=== PATIENT | male | born 1980 | race Two or more races ===

== ENCOUNTER 2020-06-20 08:41 | Emergency (ER) | payer OTHER ==
[~2020-06-20] VITALS: Ht 175.3 cm; Wt 100.3 kg
[2020-06-20] MEDS ORDERED: MORPHINE 4 MG/ML 1ML VIAL/SYRINGE (J2270) IV ONE (09:00)
[2020-06-20] MEDS ORDERED: ONDANSETRON 4MG/2ML VIAL IV ONE (09:00)
[2020-06-20 09:21] LABS: BASO % 0.9 % (0.0-1.0); EOS # 0.1 10^3/uL (0.0-0.5); EOS % 2.6 % (0.0-3.0); HEMATOCRIT 43.1 % (42.0-52.0); HEMOGLOBIN 14.3 g/dl (13.5-17.5); LYMPH # 1.1 10^3/uL (1.5-5.0); LYMPH % 23.9 % (24.0-44.0); MEAN CORPUSCULAR HEMOGLOBIN 28.7 pg (27.0-33.0); MEAN CORPUSCULAR HGB CONC 33.2 g/dl (32.0-36.5); MEAN CORPUSCULAR VOLUME 86.4 fl (80.0-96.0); MONO # 0.4 10^3/uL (0.0-0.8); MONO % 7.7 % (0.0-5.0); NEUTROPHILS % 64.7 % (36.0-66.0); PLATELET COUNT, AUTOMATED 270 10^3/uL (150-450); RED BLOOD COUNT 4.99 10^6/uL (4.30-6.10); WHITE BLOOD COUNT 4.6 10^3/uL (4.0-10.0)
[2020-06-20 09:41] LABS: BLOOD UREA NITROGEN 15 MG/DL (7-18); CALCIUM LEVEL 9.1 MG/DL (8.5-10.1); CARBON DIOXIDE LEVEL 27 MEQ/L (21-32); CHLORIDE LEVEL 108 MEQ/L (98-107); CREATININE FOR GFR 0.94 MG/DL (0.70-1.30); GLOMERULAR FILTRATION RATE > 60.0 (>60); GLUCOSE, FASTING 104 MG/DL (70-100); POTASSIUM SERUM 4.3 MEQ/L (3.5-5.1); SODIUM LEVEL 140 MEQ/L (136-145)
--- NOTE | 2020-06-20 09:50 | REP ---
Lumbar spine series: Six views. History: Sudden lower lumbar spine pain. Injury during exercise. Findings: Lumbar vertebral body heights are preserved. Alignment is normal. Disc spaces are maintained. Pedicles and posterior elements are intact. There is no evidence of spondylolysis or spondylolisthesis. No fracture or collapse is seen. Psoas margins are symmetric. Sacrum and SI joints are intact. Visualized bowel gas pattern is unremarkable. Impression: Negative radiographs of the lumbar spine. Electronically Signed by Demarco Thapa MD 06/20/2020 09:42 A
--- NOTE | 2020-06-20 13:09 | REPVR ---
PROCEDURE INFORMATION: Exam: MR Lumbar Spine Without Contrast. Exam date and time: 06/20/2020 1:00 PM Age: 40 years old Clinical indication: Pain and injury or trauma; Initial encounter; Sprain or strain, lumbar ligaments; Low back pain; Injury date: 06/20/20; Injury details: Pain in low back after weight lifting injury; Additional info: Heavy life, sudden lbp w rad to groin TECHNIQUE: Imaging protocol: Multiplanar magnetic resonance images of the lumbar spine without intravenous contrast. COMPARISON: [facility] Spine. Lumbosacral, complete 06/20/2020 9:15 AM FINDINGS: Vertebrae: There is 3 mm of grade 1 retrolisthesis of L5 with respect to S1. Normal vertebral body alignment is otherwise preserved. Spinal cord: Conus medullaris terminates at T12/L1. L1-L2: No significant disc disease. No significant spinal canal stenosis. No neural foraminal stenosis. L2-L3: No significant disc disease. No significant spinal canal stenosis. No neural foraminal stenosis. L3-L4: There is shallow disc bulging. There is mild facet hypertrophy. There is mild bilateral neural foraminal narrowing. L4-L5: There is diffuse disc bulging with shallow left paracentral protrusion and annular tear. There is mild facet hypertrophy. The neural foramina are patent. L5-S1: There is diffuse disc bulging/uncovering related to listhesis asymmetric to the left. This narrows the left lateral recess and minimally posteriorly displaces the left S1 nerve root. There is mild facet hypertrophy. There is mild left neural foraminal narrowing. Soft tissues: Unremarkable. IMPRESSION: Degenerative disc disease and spondylosis. At L5/S1, diffuse disc bulge asymmetric to the left narrows the left lateral recess and comes into close contact with the left S1 nerve root. Electronically signed by: Sun Pichardo On 06/20/2020 13:08:27 PM
[2020-06-20] MEDS ORDERED: NORC1TAB7 PO (14:00)
[2020-06-20] MEDS ORDERED: PERCOCET 5MG/325MG TAB PO ONE (14:00)
[2020-06-20] MEDS ORDERED: IBUPROFEN 600MG TAB PO ONE (14:00)
[2020-06-20 14:51] VITALS: BP 131/75
--- NOTE | 2020-06-20 19:20 | ED PDOC ---
Post-Departure Follow-Up [facility] faxed mri ls spine for fu Orin Keith MD Jun 20, 2020 19:20
== END 2020-06-20 14:52 | disposition home or self-care (01) ==
LOC: M ED 08:41
DX: M51.27 Other intervertebral disc displacement, lumbosacral region (principal)
CPT/HCPCS: 72110; 72148; 80048; 85025; 96374; 96375; 99284; J2270; J2405

== ENCOUNTER 2023-09-08 11:44 | Emergency (ER) | payer OTHER ==
[~2023-09-08] VITALS: Ht 175.3 cm; Wt 106.8 kg
[~2023-09-08 11:44] MED LIST: NORC1TAB7 PO
[2023-09-08 12:42] LABS: BASO % 0.6 % (0.0-1.0); EOS # 0.1 10^3/uL (0.0-0.5); EOS % 1.2 % (0.0-3.0); HEMATOCRIT 46.9 % (42.0-52.0); HEMOGLOBIN 15.5 g/dl (13.5-17.5); LYMPH # 1.4 10^3/uL (1.5-5.0); LYMPH % 21.5 % (24.0-44.0); MEAN CORPUSCULAR HEMOGLOBIN 28.6 pg (27.0-33.0); MEAN CORPUSCULAR VOLUME 86.5 fl (80.0-96.0); MONO # 0.5 10^3/uL (0.0-0.8); MONO % 6.9 % (2.0-8.0); NEUTROPHILS # 4.5 10^3/uL (1.5-8.5); NEUTROPHILS % 69.6 % (36.0-66.0); PLATELET COUNT, AUTOMATED 289 10^3/uL (150-450); RED BLOOD COUNT 5.42 10^6/uL (4.30-6.10); WHITE BLOOD COUNT 6.5 10^3/uL (4.0-10.0)
[2023-09-08 12:48] LABS: INR 1.04; PROTHROMBIN TIME 13.3 SECONDS (12.5-14.5)
[2023-09-08 12:49] LABS: PARTIAL THROMBOPLASTIN TIME 29.5 SECONDS (24.8-34.2)
[2023-09-08 13:01] LABS: CK-MB VALUE MASS < 1.0 NG/ML (<3.6); LIPASE 35 U/L (12-53)
[2023-09-08 13:03] LABS: CPK CREATINE PHOSPHOKINASE 137 U/L (46-171); MB/CK RELATIVE INDEX 0.72 (< OR =4)
[2023-09-08 13:05] LABS: THYROID STIMULATING HORMONE 0.728 uIU/ML (0.55-4.78)
[2023-09-08 13:24] LABS: ALBUMIN 4.4 G/DL (3.2-5.2); ALKALINE PHOSPHATASE 72 U/L (46-116); ALT/SGPT 44 U/L (7.0-40); AST/SGOT 21 U/L (<34); BILIRUBIN,DIRECT 0.3 MG/DL (<0.4); BILIRUBIN,TOTAL 0.9 MG/DL (0.3-1.2); BLOOD UREA NITROGEN 13 MG/DL (9-23); CALCIUM LEVEL 9.7 MG/DL (8.5-10.1); CARBON DIOXIDE LEVEL 30 MMOL/L (20-31); CHLORIDE LEVEL 105 MMOL/L (98-107); CREATININE FOR GFR 0.91 MG/DL (0.70-1.30); GLOMERULAR FILTRATION RATE > 60.0 (>60); GLUCOSE, FASTING 97 MG/DL (60-100); MAGNESIUM LEVEL 2.1 MG/DL (1.8-2.4); POTASSIUM SERUM 4.2 MMOL/L (3.5-5.1); SODIUM LEVEL 141 MMOL/L (136-145); TOTAL PROTEIN 7.4 G/DL (5.7-8.2)
[2023-09-08 14:58] LABS: D-DIMER QUANT < 0.27 ug/mL (<0.5)
[2023-09-08 15:46] LABS: CK-MB VALUE MASS < 1.0 NG/ML (<3.6)
[2023-09-08 15:49] LABS: CPK CREATINE PHOSPHOKINASE 142 U/L (46-171)
[2023-09-08] MEDS ORDERED: HYDR-3363 PO (16:00)
[2023-09-08 16:02] VITALS: BP 136/86; TEMP 97.9; O2SAT 98
== END 2023-09-08 16:19 | disposition home or self-care (01) ==
LOC: M ED 11:44
DX: R07.89 Other chest pain (principal); F15.90 Other stimulant use, unspecified, uncomplicated; Z86.79 Personal history of other diseases of the circulatory system

== ENCOUNTER → 2024-05-19 | Outpatient (REF) ==
[~2024-05-19] MED LIST changes: +HYDR-3363 PO
== END ==
LOC: M PLAIMG 09:54
PROVIDERS: ATTEND Internal Medicine
DX: R06.02 Shortness of breath (principal)

== ENCOUNTER → 2025-03-12 | Outpatient (CLI) | payer OTHER | LOC: M SLEEP 20:00 | PROVIDERS: ATTEND Physician Assistant | DX: G47.33 Obstructive sleep apnea (adult) (pediatric) (principal) ==